=== PATIENT | female | born 1970 | race Caucasian/White ===

== ENCOUNTER 2024-11-05 08:50 | Inpatient (IN) ==
--- NOTE | 2024-10-22 08:38 | PAT Medication Instructions ---
Medication Instructions Date of Service October 22, 2024 Home Medications cholecalciferol (vitamin D3) 50 mcg (2,000 unit) capsule (Vitamin D3) 50 mcg PO DAILY cyclobenzaprine 10 mg tablet 10 mg PO HS PRN Spasms linaclotide 145 mcg capsule (Linzess) 145 mcg PO QAM metoprolol succinate 50 mg tablet,extended release 24 hr 50 mg PO QAM omeprazole 40 mg capsule,delayed release 40 mg PO QAM phentermine 37.5 mg tablet 37.5 mg PO UD polyethylene glycol 3350 17 gram oral powder packet (Miralax) 17 g PO DAILY DO NOT take the morning of surgery cholecalciferol (vitamin D3) 50 mcg (2,000 unit) capsule (Vitamin D3) 50 mcg PO DAILY linaclotide 145 mcg capsule (Linzess) 145 mcg PO QAM polyethylene glycol 3350 17 gram oral powder packet (Miralax) 17 g PO DAILY Take morning of surgery With a small sip of water, OTHERWISE NOTHING TO EAT OR DRINK AFTER MIDNIGHT: metoprolol succinate 50 mg tablet,extended release 24 hr 50 mg PO QAM omeprazole 40 mg capsule,delayed release 40 mg PO QAM Take evening before surgery cyclobenzaprine 10 mg tablet 10 mg PO HS PRN Spasms (if needed) STOP 5 days prior to surgery phentermine 37.5 mg tablet 37.5 mg PO UD Other Notes If you have any questions please call us at [phone] or [phone] or [phone] or [phone]
--- NOTE | 2024-10-28 11:25 | Anesthesiology Consultation ---
Date of Service October 28, 2024 Assessment & Plan (1) Encounter for pre-operative examination: - will request surgeon ordered medical clearance, Martin Nestor Internal medicine [facility]-patient states is seeing PCP again 11/02; PAT testing to be faxed to PCP. - potential difficult intubation: s/p multilevel cervical spine surgery. Chart Review Chart Review: Pending: Refer to Additional Notes / Consult section and Patient seen in Pre Admission Testing Teaching & Discussion Pre-Anesthesia Teaching/Discussion Notes: Instructed NPO after midnight before surgery, except medications with 15 cc of water. Medication instructions provided according to the PAT guidelines. History Surgery Operation Date: 11/05/24 11:25 Proposed Procedures p L4-S1 Decompression and Fusion - Byron Schmidt DO Height/Weight Height: 5 ft 4 in Weight: 85.7 kg Allergies Allergy/AdvReac Type Severity Reaction Status Date / Time No Known Allergies Allergy Verified 10/21/24 14:05 Medications Home Medications Medication Instructions Recorded Confirmed Last Taken cholecalciferol (vitamin D3) 50 50 mcg PO DAILY 10/21/24 10/21/24 Unknown mcg (2,000 unit) capsule (Vitamin D3) cyclobenzaprine 10 mg tablet 10 mg PO HS PRN Spasms 10/21/24 10/21/24 Unknown linaclotide 145 mcg capsule 145 mcg PO QAM 10/21/24 10/21/24 Unknown (Linzess) metoprolol succinate 50 mg 50 mg PO QAM 10/21/24 10/21/24 Unknown tablet,extended release 24 hr omeprazole 40 mg capsule,delayed 40 mg PO QAM 10/21/24 10/21/24 Unknown release phentermine 37.5 mg tablet 37.5 mg PO UD 10/21/24 10/21/24 Unknown polyethylene glycol 3350 17 gram 17 g PO DAILY 10/21/24 10/21/24 Unknown oral powder packet (Miralax) Past Medical History Medical History (Updated 10/28/24 @ 11:40 by Teresita Leija PA-C) Constipation DDD (degenerative disc disease), lumbar GERD (gastroesophageal reflux disease) controlled, stable per pt HTN (hypertension) controlled, stable per pt Hx MRSA infection pilondial cyst- treated at [facility], 2022-no precautions needed per [place] infection control Hx of hemorrhoids Potential difficult intubation on preoperative anesthesia assessment s/p multilevel cervical spine surgery Patient denies h/o stroke, seizures, heart attack, heart failure, DM, blood clots/DVTs or blood transfusions. Exercise / Class Metabolic Activity II 4-5 Yardwork/Stairs/Walk up hill (denies chest discomfort or shortness of breath with one flight of stairs) Past Surgical History Surgical History Hx of cervical spine surgery ~ 8-9 years ago- had cage placed, unsure of level - full rom Hx of section (1990) x2 1990 Hx of cholecystectomy > 10 years ago Hx of colonoscopy Hx of hysterectomy (01/22/23) Hx of pilonidal cyst ~ 1-2 years Past Anesthesia History No Hx of Anesthesia Complications and No Family Hx of Anesthesia Complications History of PONV No Hx of PONV and No Hx of Motion Sickness Social History Smoking Status: Never smoker Do You Dip or Chew Tobacco: No Hx Alcohol Use: No Hx Substance Use: No substance use type: does not use Review of Systems Patient denies chest pain, shortness of breath, dyspnea on exertion, snoring, witnessed apneas, fever, chills, cough, wheezing, or palpitations. Physical Exam Vital Signs Vitals BP 138/68 P 54 TEMP 98.1 SP02 96% on RA RESP 17 Physical Patient resting comfortably in chair in no acute distress, alert and oriented, responding appropriately throughout visit Limited cervical extension range of motion without pain TMD 3 finger breadths Mallampati Score 3 Dentition: bridge and permanent wire behind teeth, denies chipped or loose teeth, caps/crowns, implants Lungs: normal respiratory effort. Good air movement, clear throughout to auscultation, no adventitious breath sounds Cardiac: regular rate and rhythm, no murmurs noted Carotid arteries: negative bruit bilat Lab Results Anesthesia Preop Results Results Anesthesia Widget: WBC 6.04 K/ul (4.8-10.8) 10/28/24 Hgb 13.9 g/dl (12.0-16.0) 10/28/24 Hct 40.7 % (37.0-47.0) 10/28/24 Plt 209 K/uL (130-400) 10/28/24 Na 138 mmol/L (136-145) 10/28/24 K 4.7 mmol/L (3.5-5.1) 10/28/24 Cl 105 mmol/L (98-107) 10/28/24 CO2 28 mmol/L (21-32) 10/28/24 BUN 22 mg/dl (6-23) 10/28/24 Creat 0.89 mg/dl (0.6-1.2) 10/28/24 Glucose Level 91 mg/dl (70-99(Fasting)) 10/28/24 PT 10.3 Seconds (9.0-12.0) 10/28/24 PTT 22 Seconds (21-31) 10/28/24 INR 0.9 (0.9-1.1) 10/28/24 Urine Color Yellow 10/28/24 Urine Appearance Clear (Clear) 10/28/24 Urine pH 5.0 (4.5-7.5) 10/28/24 Urine Specific [place] 1.011 (1.000-1.030) 10/28/24 Urine Protein Negative (Negative) 10/28/24 Urine Glucose (UA) Negative (Negative) 10/28/24 Urine Ketones Negative (Negative) 10/28/24 Urine Blood Negative (Negative) 10/28/24 Urine Nitrite Negative (Negative) 10/28/24 Urine Bilirubin Negative (Negative) 10/28/24 Urine Urobilinogen Negative (Negative) 10/28/24 Urine Leukocyte Esterase Negative (Negative) 10/28/24 Blood Type A Positive 10/28/24 Antibody Screen NEGATIVE 10/28/24 Testing Electrocardiogram Date: 10/28/24 Sinus bradycardia with 1st degree AV block, rate 54 bpm Chest X-Ray Date: 10/28/24 Heart size and pulmonary vasculature are normal. No consolidation or pleural effusion. There is minimal scoliosis. IMPRESSION: No acute findings.
[~2024-11-05 08:50] MED LIST: DEXAMETHASONE SOD INJ 4 MG/ML VIAL ONE; LARYING-O-JET KIT (LTA) ONE; LIDOCAINE 2% 2 ML VIAL/AMP(20MG/ML) INFIL ONE; MIDAZOLAM HCL 1 MG/ML 2ML VIAL ONE; ONDANSETRON INJ 2 MG/ML 2 ML VIAL ONE; PROPOFOL IV EMULSION 10 MG/ML 20 ML VIAL IV ONE; ROCURONIUM BROMIDE 10 MG/ML 5 ML VIAL IV ONE
[2024-11-05] MEDS ORDERED: ePHEDrine sulfate 50 MG/5 ML SYR ONE ×2 (09:29→11:18)
[2024-11-05] MEDS: LR 15ML/HR IV SCH (09:32)
[2024-11-05] MEDS: LR 60ML/HR IV SCH (09:32)
[2024-11-05] MEDS: CeleBREX 200 MG CAP PO SCH (09:34)
[2024-11-05] MEDS: GABAPENTIN 900 MG DOSE PO SCH (09:34)
[2024-11-05] MEDS: ACETAMINOPHEN 500 MG TAB PO SCH (09:34)
[2024-11-05] MEDS ORDERED: ATROPINE SULFATE 0.1 MG/ML 10ML SYR IV PRN (09:41)
[2024-11-05] MEDS ORDERED: PROMETHAZINE HCL 6.25 MG in SODIUM CHLORIDE 0.9% 50 ML IV PRN (09:41)
--- NOTE | 2024-11-05 10:06 | History & Physical Bridge Note ---
Date of Service November 05, 2024 History & Physical Bridge Note I have examined the patient, reviewed the History & Physical and in the interval since the performance of the History & Physical I have noted the following changes of clinical significance: no changes noted
--- NOTE | 2024-11-05 10:07 | History & Physical Report ---
Date of Service November 05, 2024 Assessment & Plan (1) Lumbosacral spondylosis with radiculopathy: Plan: L4-S1 decompression and fusion History of Present Illness Chief Complaint: Back and leg pain Primary Care Provider: Martin Baez PA-C This is a 54-year-old female who presents chronic persistent back and leg pain after failing course of nonoperative care she is here for surgical intervention. Allergies Allergy/AdvReac Type Severity Reaction Status Date / Time No Known Allergies Allergy Verified 11/05/24 09:12 Home Medications Medication Instructions Recorded Confirmed Type cholecalciferol (vitamin D3) 50 50 mcg PO DAILY 10/21/24 11/05/24 History mcg (2,000 unit) capsule (Vitamin D3) cyclobenzaprine 10 mg tablet 10 mg PO HS PRN Spasms 10/21/24 11/05/24 History linaclotide 145 mcg capsule 145 mcg PO QAM 10/21/24 11/05/24 History (Linzess) metoprolol succinate 50 mg 50 mg PO QAM 10/21/24 11/05/24 History tablet,extended release 24 hr omeprazole 40 mg capsule,delayed 40 mg PO QAM 10/21/24 11/05/24 History release phentermine 37.5 mg tablet 37.5 mg PO UD 10/21/24 11/05/24 History polyethylene glycol 3350 17 gram 17 g PO DAILY 10/21/24 11/05/24 History oral powder packet (Miralax) Past Med/Surg History Problem List (Updated 11/05/24 @ 10:07 by Byron Schmidt DO) Lumbosacral spondylosis with radiculopathy Encounter for pre-operative examination Medical History (Updated 11/05/24 @ 10:07 by Byron Schmidt DO) Potential difficult intubation on preoperative anesthesia assessment s/p multilevel cervical spine surgery Hx MRSA infection pilondial cyst- treated at [facility], 2022-no precautions needed per [place] infection control DDD (degenerative disc disease), lumbar GERD (gastroesophageal reflux disease) controlled, stable per pt HTN (hypertension) controlled, stable per pt Hx of hemorrhoids Constipation Surgical History Hx of pilonidal cyst ~ 1-2 years Hx of colonoscopy Hx of cervical spine surgery ~ 8-9 years ago- had cage placed, unsure of level - full rom Hx of hysterectomy (01/22/23) Hx of cholecystectomy > 10 years ago Hx of section (1990) x2 1990 Social History Smoking Status: Never smoker Second Hand Exposure: No; Do You Dip or Chew Tobacco: No; Tobacco Cessation Education Requested by Patient: No Hx Alcohol Use: No Hx Substance Use: No Preferred Language: British Communication Ability: Effective Forestry Pilot Required: No Beliefs That Will Affect Care: None Current Living Situation: Spouse Other Information That Helps Us Care for You: No Feels Safe at Home: Yes Safety Concerns: Feels Safe At This Time Assistive Devices: Glasses Physical Exam Physical Exam: Patient is alert and oriented heart regular rhythm Lungs clear Results & Data Results & Data Vital Signs (Past 12 Hours) Vital Signs Temp Pulse Resp BP Pulse Ox O2 Del Method 11/05/24 09:16 36.8 C 64 20 133/90 98 Room Air
[2024-11-05] MEDS: BUPIVACAINE/EPINEPHRINE 0.25% 1:200,000 30 ML VIAL ONE (10:59)
[2024-11-05] MEDS ORDERED: SUGAMMADEX SODIUM 200 MG/2 ML VIAL IV ONE (11:34)
[2024-11-05] MEDS: ceFAZolin 330 MG/ML 1 GM VIAL ONE (11:40)
[2024-11-05] MEDS: FLOSEAL HEMOSTATIC MATRIX 10ML TOP ONE (12:34)
--- NOTE | 2024-11-05 12:53 | Fluoroscopy Report ---
FL lumbar spine 2-3V CLINICAL HISTORY: L4-S1 DECOMP AND FUSION COMPARISON STUDY: None FLUOROSCOPY TIME: 21 seconds FLUOROSCOPY IMAGES: 2 EXPOSURE DOSE: 21 mGy FINDINGS: Fluoroscopy was provided for lower lumbar fusion. IMPRESSION: Intraoperative fluoroscopy. ACT 112: Negative or not required by law. Electronically signed by: Heber Cerna M.D. 11/05/2024 12:51 PM
--- NOTE | 2024-11-05 13:04 | Operative Report ---
Post Operative Report Pre & Post Diagnosis Operation Date: 11/05/24 10:05 Pre-Op Diagnosis: #1 Two-Level Lumbosacral Spondylosis with Radiculopathy #2 lumbar spondylolisthesis with radiculopathy Post-Op Diagnosis: Same I identified the patient and participated in the time-out.: Yes Procedure Operation Date: 11/05/24 10:05 Actual Procedures #1 lumbar decompression with bilateral medial facetectomies and foraminotomies L3-L4, L4-5 and L5-S1. #2 posterior spinal fusion L4-S1. #3 placed posterior instrumentation L4-S1 using Fuentes. #4 interbody fusion L4-5 L5-S1. #5 placement of Spira 11 x 26 mm x 2 at L4-L5 and 9 x 26 mm x 2 at L5-S1. #6 placement locally harvested morselized autograft posterior gutters. #7 placement of Proteus combined with Koros in the posterior lateral gutters and os design interbody space. #8 application of versa wrap of the exposed dura. Surgeon Byron Schmidt, [employer] Starla Keating Estimated Blood Loss 550 Findings Consistent with Post-Op Diagnosis Specimens None Indications This is a 54-year-old female who presents manage diagnosis of nonoperative care she is here for surgical invention. Description of Procedure Patient was met with identified informed consent obtained. Patient was then taken to the operative suite underwent the patient placed in a prone position on the Prince table atop Martir frame. All bony promises well-padded eyes inspected to ensure no external pressure placed upon them. This point lumbar spine is prepped and draped in normal sterile fashion. Sharp dissection with the assistance of Bovie cautery from down to and exposing the lamina transverse processes of L4-5 and the sacral ala bilaterally. From a caudal to cephalad fashion complete laminectomy of L5 was performed with bilateral medial facetectomy and foraminotomies. This was followed by complete laminectomy of L4 with bilateral medial facetectomies and foraminotomies and lastly partial laminectomy of L3 with bilateral medial facetectomies to address all subarticular neural compression. Pedicle screws were then placed in L4-L5 and S1 levels bilaterally with assistance of fluoroscopy appropriate size haylee contoured and placed. By way the transforaminal approach on the right discectomy of L5-S1 was performed endplates guarded to subcortical bleeding bone and 9 x 26 mm Spira cage tapped into position. Then proceeded to the left transforaminal region at L5-S1. Again discectomy performed. Endplates corrected to subcortical bleeding bone and a second 9 x 26 mm Spira cage tapped in position. Then proceeded L4-L5 and by way of transforaminal approach and left discectomy performed. Endplates corrected to subcortical bleeding bone and a 11 x 26 mm Spira cage tapped in position. Then proceeded to the right transforaminal region at L4-5. Again discectomy performed. Endplates guided to subcortical bleeding bone and a second 11 x 26 mm Spira cage tapped in position. Please note all cages were packed with os design bone graft. Rods were then locked in a final position bilaterally. The transverse processes of L4-L5 and the sacral ala burred to subcortical bleeding bone. Proteus combined with Koros and local autograft placed posterior gutters. Versa wrap placed of exposed dura. 15 round GORDO drain inserted. Incision was then closed with 1 Vicryl the fascia 2-0 Vicryl subcutaneously and 4-0 Monocryl for final skin closure. Steri-Strips sterile dressing placed. Patient waken taken to PACU stable condition. Please note Starla Keating was present at the entire procedure and all the patient positioning complex ports of the surgery and final skin closure. I attest to the content of the Intraoperative Record and any orders documented therein. Any exceptions are noted below.
[2024-11-05] MEDS: HYDROmorphone INJ 2 MG/ML SYR/VIAL IV PRN (13:22)
[2024-11-05] MEDS: HYDROmorphone INJ 0.5 MG/0.5 ML SYR IV STA (13:43)
[2024-11-05] MEDS: HYDROmorphone INJ 0.5 MG/0.5 ML SYR IV PRN ×2 (13:43→20:03)
--- NOTE | 2024-11-05 14:38 | Anesthesiology Progress Note ---
Date of Service November 05, 2024 Anesthesia Post Procedure Vital Signs Vital Signs: Temp Pulse Pulse Resp BP BP Pulse Ox 11/05/24 14:05 69 14 114/61 96 11/05/24 13:55 71 14 119/79 97 11/05/24 13:45 73 14 122/79 97 11/05/24 13:35 75 14 104/61 96 11/05/24 13:25 86 14 112/63 96 11/05/24 13:15 92 H 12 106/66 99 11/05/24 13:05 36.4 C L 87 16 109/79 96 11/05/24 09:16 36.8 C 64 20 133/90 98 O2 Del Method O2 Flow Rate 11/05/24 14:05 Nasal Cannula 4 11/05/24 13:55 Nasal Cannula 4 11/05/24 13:45 Oxymask 5 11/05/24 13:35 Oxymask 5 11/05/24 13:25 Oxymask 5 11/05/24 13:15 Oxymask 13 11/05/24 13:05 Oxymask 13 11/05/24 09:16 Room Air Pain Intensity Lower Back: Pain Intensity: 5 Transfer of Care Handoff Completed per policy Notes Mental Status: alert / awake / arousable and participated in evaluation Nausea / Vomiting: adequately controlled Pain: adequately controlled Airway Patency, RR, SpO2: stable & adequate BP & HR: stable & adequate Hydration State: stable & adequate Anesthetic Complications: no major complications apparent and Pt Satisfied with anesthetic care
[2024-11-05] MEDS ORDERED: SOD PHOSPHATE/SOD BIPHOSPHATE ENEMA 132 ML BTL PR PRN (15:09)
[2024-11-05] MEDS ORDERED: NALOXONE HCL 0.4 MG/1 ML VIAL/CARP IV PRN (15:09)
[2024-11-05] MEDS ORDERED: PROMETHAZINE 12.5 MG/50.5 ML BAG IV PRN (15:09)
[2024-11-05] MEDS ORDERED: LORazepam 0.5 MG TAB PO PRN (15:09)
[2024-11-05] MEDS ORDERED: ONDANSETRON INJ 2 MG/ML 2 ML VIAL IV PRN (15:09)
[2024-11-05] MEDS ORDERED: diphenhydrAMINE Capsule 25 MG CAP PO PRN (15:09)
[2024-11-05] MEDS ORDERED: MAGNESIUM HYDROXIDE SUSP 30 ML UDC PO PRN (15:09)
[2024-11-05] MEDS ORDERED: ALUMINUM/MAGNESIUM SUSP 30 ML UDC PO PRN (15:09)
[2024-11-05] MEDS ORDERED: ACETAMINOPHEN 1,000 MG/100 ML VIAL IV PRN (15:09)
[2024-11-05] MEDS ORDERED: FAMOTIDINE 20 MG TAB PO PRN (15:09)
[2024-11-05] MEDS ORDERED: DO NOT ADMINISTER PNEUMOCOCCAL VACCINE PRN (15:09)
[2024-11-05] MEDS ORDERED: DO NOT ADMINISTER FLU VACCINE PRN (15:09)
[2024-11-05] MEDS ORDERED: ONDANSETRON 4 MG OD TAB PO PRN (15:09)
[2024-11-05] MEDS ORDERED: METOCLOPRAMIDE HCL INJ 5 MG/ML 2 ML VIAL IV PRN (15:09)
[2024-11-05] MEDS ORDERED: CYCLOBENZAPRINE HCL 10 MG TAB PO PRN (15:09)
[2024-11-05] MEDS: HYDROmorphone INJ 2 MG/ML SYR/VIAL ONE (15:17)
[2024-11-05] MEDS: LACTATED RINGER'S 1,000 ML IV SCH (15:38)
--- NOTE | 2024-11-05 17:21 | Consultation ---
Date of Consultation November 05, 2024 Assessment & Plan (1) Lumbosacral spondylosis with radiculopathy: Assessment/plan L4-S1 decompression fusion on 11/05 Preop hemoglobin of 13.9 on 10/28 Estimated blood loss of 550 Pain control with Dilaudid, Tylenol, tramadol. Continue PT OT Continue IV fluids Monitor CBC and BMP in a.m. Bowel regimen History of hypertensioncontinue on metoprolol History of GERDcontinue on omeprazole History of hyperlipidemianot on meds; follow-up with primary care provider Chronic constipationon bowel regimen Full code DVT prophylaxis SCDs; Time spent evaluating patient, direct bedside care, chart review, placing orders, interpretation of diagnostic studies, discussion with consultants, patient, and family members, as well as other required patient management activities is 60 minutes Please note the above document was generated using voice recognition software. It may contain grammatical, syntax or spelling errors. Any formal questions or concerns about the content, text or information contained within the body of this dictation should be directly addressed to the provider for clarification History of Present Illness Requesting Physician: Byron Schmidt DO Reason for Consultation: Medical management Attending Physician: Byron Schmidt DO History of Present Illness History obtained from chart review and interview with the patient Past medical history of class I obesity, depression, psychogenic nonepileptic seizure, dyslipidemia, hypertension, GERD, mixed lipidemia, chronic constipation Patient presented to the hospital with lumbar sacral spondylolysis with radiculopathy. She has history of chronic persistent back pain and leg pain and failed nonoperative care. Patient was referred for surgery. Patient underwent L4-S1 decompression and fusion by Dr. Schmidt. She is comfortable; does not appear to be in any distress. Denies any shortness of breath, chest pain, abdominal pain. Labs from 10/28 reviewed; hemoglobin of 13.9. BUN/creatinine within normal limits. EKG from 10/28 showed sinus bradycardia with first-degree AV block Family history; hypertension in mother, heart disease in father, hypertension in brother Social history; does not smoke, does not use alcohol nonoperative Allergies Allergy/AdvReac Type Severity Reaction Status Date / Time No Known Allergies Allergy Verified 11/05/24 09:12 Home Medications Medication Instructions Recorded Confirmed Type cholecalciferol (vitamin D3) 50 50 mcg PO DAILY 10/21/24 11/05/24 History mcg (2,000 unit) capsule (Vitamin D3) cyclobenzaprine 10 mg tablet 10 mg PO HS PRN Spasms 10/21/24 11/05/24 History linaclotide 145 mcg capsule 145 mcg PO QAM 10/21/24 11/05/24 History (Linzess) metoprolol succinate 50 mg 50 mg PO QAM 10/21/24 11/05/24 History tablet,extended release 24 hr omeprazole 40 mg capsule,delayed 40 mg PO QAM 10/21/24 11/05/24 History release phentermine 37.5 mg tablet 37.5 mg PO UD 10/21/24 11/05/24 History polyethylene glycol 3350 17 gram 17 g PO DAILY 10/21/24 11/05/24 History oral powder packet (Miralax) Patient History Medical History (Updated 11/05/24 @ 10:07 by Byron Schmidt DO) Potential difficult intubation on preoperative anesthesia assessment s/p multilevel cervical spine surgery Hx MRSA infection pilondial cyst- treated at [facility], 2022-no precautions needed per [place] infection control DDD (degenerative disc disease), lumbar GERD (gastroesophageal reflux disease) controlled, stable per pt HTN (hypertension) controlled, stable per pt Hx of hemorrhoids Constipation Surgical History Hx of pilonidal cyst ~ 1-2 years Hx of colonoscopy Hx of cervical spine surgery ~ 8-9 years ago- had cage placed, unsure of level - full rom Hx of hysterectomy (01/22/23) Hx of cholecystectomy > 10 years ago Hx of section (1990) x2 1990 Social History Smoking Status: Never smoker Second Hand Exposure: No; Do You Dip or Chew Tobacco: No; Tobacco Cessation Education Requested by Patient: No Hx Alcohol Use: No Hx Substance Use: No Preferred Language: Slovak Communication Ability: Effective Manager Of Security Required: No Beliefs That Will Affect Care: None Current Living Situation: Spouse Other Information That Helps Us Care for You: No Feels Safe at Home: Yes Safety Concerns: Feels Safe At This Time Assistive Devices: Cane and Walker Review of Systems Review of Systems: All systems reviewed & are unremarkable except as noted in Subjective Physical Exam Physical Exam: On physical examination; Constitutional: WD/WN, vitals as above, NAD, sitting up in bed, pleasant, conversing easily Respiratory: normal respiratory effort, lungs clear to auscultation, no wheeze, rales, rhonchi. Normal insp/exp effort, no accessory muscle use Cardiovascular: RRR, no murmur, no edema Vessels: no JVD or carotid bruit Chest: normal inspection of chest Abdomen: normal bowel sounds, soft, nontender, no hepatosplenomegaly Musculoskeletal: dressing in place on the back with drain with serosangious output Skin: no rashes, warm and dry normal turgor Neurologic: PERRL, EOMI, accommodation nl, no face palsy, no dysarthria CN's II- XI intact bilaterally and moves all extremities Psychiatric: A+Ox3, euthymic affect Results & Data Vital Signs (Past 12 Hours) Vital Signs Temp Pulse Pulse Resp BP BP Pulse Ox 11/05/24 16:56 36.6 C 80 16 109/68 93 11/05/24 16:00 75 16 107/65 91 11/05/24 15:30 36.7 C 71 14 118/72 96 11/05/24 15:00 11/05/24 15:00 36.6 C 77 16 113/69 94 11/05/24 14:45 36.4 C L 11/05/24 14:35 73 14 111/60 95 11/05/24 14:25 71 14 111/61 95 11/05/24 14:15 36.2 C L 65 12 114/65 96 11/05/24 14:05 69 14 114/61 96 11/05/24 13:55 71 14 119/79 97 11/05/24 13:45 73 14 122/79 97 11/05/24 13:35 75 14 104/61 96 11/05/24 13:25 86 14 112/63 96 11/05/24 13:15 92 H 12 106/66 99 11/05/24 13:05 36.4 C L 87 16 109/79 96 11/05/24 09:16 36.8 C 64 20 133/90 98 O2 Del Method O2 Flow Rate 11/05/24 16:56 Nasal Cannula 3 11/05/24 16:00 Nasal Cannula 3 11/05/24 15:30 Nasal Cannula 3 11/05/24 15:00 Nasal Cannula 3 11/05/24 15:00 Nasal Cannula 2 11/05/24 14:45 11/05/24 14:35 Nasal Cannula 4 11/05/24 14:25 Nasal Cannula 4 11/05/24 14:15 Nasal Cannula 4 11/05/24 14:05 Nasal Cannula 4 11/05/24 13:55 Nasal Cannula 4 11/05/24 13:45 Oxymask 5 11/05/24 13:35 Oxymask 5 11/05/24 13:25 Oxymask 5 11/05/24 13:15 Oxymask 13 11/05/24 13:05 Oxymask 13 11/05/24 09:16 Room Air
[2024-11-05] MEDS: DOCUSATE SODIUM/SENNA 50/8.6MG TAB PO SCH (20:05)
[2024-11-06] MEDS: HYDROmorphone INJ 1 MG/ML SYRINGE IV PRN (01:31)
[2024-11-06] MEDS ORDERED: Nursing to Pharmacy Communication SCH (05:15)
[2024-11-06] MEDS: POLYETHYLENE (MIRALAX) 17 GM PACK PO SCH (05:46)
[2024-11-06 06:52] LABS: Hematocrit (blood only) 36.1 % (37.0-47.0); Hemoglobin 12.2 g/dl (12.0-16.0); Immature Granulocytes # (auto) 0.03 K/uL (0.01-0.20); Immature Granulocytes % (auto) 0.3 %; Mean Corpuscular Hemoglobin 28.4 pg (25.0-34.0); Mean Corpuscular Volume 84.0 fL (80.0-100.0); Platelet Count 242 K/uL (130-400); RDW Standard Deviation 39.0 fL (36.4-46.3); Red Blood Count 4.30 M/uL (4.20-5.40); White Blood Count 10.44 K/ul (4.8-10.8)
[2024-11-06 07:15] LABS: Anion Gap 7.0 (3-11); Blood Urea Nitrogen 13.0 mg/dl (6-23); Calcium 9.2 mg/dl (8.6-10.3); Carbon Dioxide 27.0 mmol/L (21-32); Chloride 98.0 mmol/L (98-107); Creatinine Clr Calc Pharmacy 81.7 ml/min; Glucose 125.0 mg/dl (70-99(Fasting)); Potassium 3.5 mmol/L (3.5-5.1); Sodium 132.0 mmol/L (136-145)
[2024-11-06] MEDS: dexAMETHasone 6 MG in SYRINGE 0 ML IV SCH (09:26)
[2024-11-06] MEDS: LINACLOTIDE 145 MCG CAPSULE PO SCH (09:26)
[2024-11-06] MEDS: METOPROLOL SUCC 50MG EXT REL TAB PO SCH (09:26)
[2024-11-06] MEDS: CHOLECALCIFEROL 25 MCG (1000 UNITS) TAB PO SCH (09:26)
--- NOTE | 2024-11-06 10:31 | Orthopedic Progress Note ---
Date of Service November 06, 2024 Assessment & Plan (1) Lumbosacral spondylosis with radiculopathy: Plan: At this time we will continue physical therapy monitor GORDO operatively discharge home next few days. Admission and Anticipated Discharge Date Admission Date: November 05, 2024 Subjective Back pain controlled leg pain improved. Tolerating physical therapy. Physical Exam Physical Exam: Patient is currently in bed. She is comfortable. Constricted testing. Results & Data Vital Signs (Past 12 Hours) Vital Signs Temp Pulse Resp BP BP Pulse Ox O2 Del Method 11/06/24 09:03 96 Room Air 11/06/24 07:20 Nasal Cannula 11/06/24 07:12 36.7 C 72 18 103/64 99 Nasal Cannula 11/06/24 03:41 36.8 C 79 16 100/60 97 Nasal Cannula 11/05/24 23:18 36.9 C 71 18 100/61 96 Nasal Cannula O2 Flow Rate 11/06/24 09:03 11/06/24 07:20 2 11/06/24 07:12 2.0 11/06/24 03:41 2 11/05/24 23:18 2 Queries Orthopedic Spine Obesity: Yes
--- NOTE | 2024-11-06 12:31 | Hospitalist Progress Note ---
Date of Service November 06, 2024 Assessment & Plan (1) Lumbosacral spondylosis with radiculopathy: Plan: Assessment/plan L4-S1 decompression fusion on 11/05 Preop hemoglobin of 13.9 on 10/28 Estimated blood loss of 550 Pain control with Dilaudid, Tylenol, tramadol. Continue PT OT Bowel regimen She has been feeling much better without any significant pain in the back and no radiculopathy Her blood counts including CBC and renal function and electrolytes remained stable History of hypertensioncontinue on metoprolol Blood pressure is controlled on the lower side at 103/64 History of GERDcontinue on omeprazole Denies any abdominal symptoms History of hyperlipidemianot on meds; follow-up with primary care provider Chronic constipationon bowel regimen Full code DVT prophylaxis SCDs; Please note the above document was generated using voice recognition software. It may contain grammatical, syntax or spelling errors. Any formal questions or concerns about the content, text or information contained within the body of this dictation should be directly addressed to the provider for clarification Admission and Anticipated Discharge Date Admission Date: November 05, 2024 Subjective 11/06/2024 The patient was seen and examined in medical floor She is status post L4-S1 decompression and fusion on 11/05/2024 Remains stable following the procedure and denies any significant back pain and no radiculopathic pain Review of Systems Review of Systems: All systems reviewed and are unremarkable except as noted below Physical Exam Physical Exam: Lying in bed without any acute distress Constitutional: well developed, well nourished, + ill appearing and + obese Eyes: PERRL, conjunctivae normal, anicteric sclerae ENMT: external ear and nose normal, oropharynx normal Neck: trachea midline, no thyromegaly Respiratory: no respiratory distress Auscultation: lungs clear to auscultation bilaterally Cardiovascular: Rate/Rhythm: regular rate and regular rhythm; not tachycardic Heart Sounds: normal S1 and normal S2; no murmur Gastrointestinal (Abdomen): Inspection/Auscultation: normal bowel sounds; abdomen not distended Percussion/Palpation: abdomen soft; abdomen nontender Musculoskeletal: No acute arthritis involving any of the joint Neurologic: normal touch/pain/proprioception and moves all extremities; no focal motor deficits Lymphatic: no cervical or axillary lymphadenopathy Results & Data Results & Data Vital Signs (Past 12 Hours) Vital Signs Temp Pulse Resp BP BP Pulse Ox O2 Del Method 11/06/24 11:20 36.7 C 67 16 103/64 97 Room Air 11/06/24 09:03 96 Room Air 11/06/24 07:20 Nasal Cannula 11/06/24 07:12 36.7 C 72 18 103/64 99 Nasal Cannula 11/06/24 03:41 36.8 C 79 16 100/60 97 Nasal Cannula O2 Flow Rate 11/06/24 11:20 11/06/24 09:03 11/06/24 07:20 2 11/06/24 07:12 2.0 11/06/24 03:41 2 Laboratory Results Short CBC 11/06/24 Range/Units 05:53 WBC 10.44 (4.8-10.8) K/ul Hgb 12.2 (12.0-16.0) g/dl Hct 36.1 L (37.0-47.0) % Plt Count 242 (130-400) K/uL BMP 11/06/24 05:53 Sodium 132 L Potassium 3.5 Chloride 98 Carbon Dioxide 27 BUN 13 Creatinine 0.84 Glucose 125 H Calcium 9.2 Medications Administered Current Inpatient Medications Acetaminophen (Acetaminophen 500 Mg Tab) 1,000 mg PO Q8H PRN PRN Reason: MILD Pain (1,2,3) & Pre PT Stop: 12/05/24 15:08 Al Hydrox/Mg Hydrox/Simethicone (Aluminum/Magnesium Susp 30 Ml Udc) 30 ml PO Q6H PRN PRN Reason: Dyspepsia Stop: 12/05/24 15:08 Bisacodyl (Bisacodyl 10 Mg Supp) [address] DAILY PRN PRN Reason: Constipation Stop: 12/05/24 15:08 Cyclobenzaprine HCl (Cyclobenzaprine Hcl 10 Mg Tab) 10 mg PO HS PRN PRN Reason: Spasms Stop: 12/05/24 15:08 Diphenhydramine HCl (Diphenhydramine Capsule 25 Mg Cap) 25 mg PO Q6H PRN PRN Reason: Allergic Rhinitis/Insomnia Stop: 12/05/24 15:08 Famotidine (Famotidine 20 Mg Tab) 20 mg PO Q12H PRN PRN Reason: Dyspepsia Stop: 12/05/24 15:08 Hydromorphone HCl (Hydromorphone Inj 0.5 Mg/0.5 Ml Syr) 0.5 mg IV Q3H PRN PRN Reason: MODERATE Pain(4,5,6)/Pre PT Stop: 11/19/24 15:08 Last Admin: 11/06/24 07:21 Dose: 0.5 mg Hydromorphone HCl (Hydromorphone Inj 1 Mg/Ml Syringe) 1 mg IV Q3H PRN PRN Reason: SEVERE Pain (7,8,9,10) Stop: 11/19/24 15:08 Last Admin: 11/06/24 01:31 Dose: 1 mg Hydroxyzine HCl (Hydroxyzine Hcl 25 Mg Tab) 25 mg PO Q8H PRN PRN Reason: Anxiety Stop: 12/05/24 15:08 Acetaminophen (Ofirmev) 1,000 mg in 100 mls @ 400 mls/hr IV Q8H PRN PRN Reason: MILD Pain (1,2,3) & Pre PT Stop: 11/06/24 15:09 Cefazolin Sodium (Ancef 2000mg) 2,000 mg in 15 mls @ 3.75 mls/min IV Q8H [facility]; Protocol Stop: 11/08/24 10:33 Last Admin: 11/06/24 11:12 Dose: 3.75 mls/min Promethazine HCl (Phenergan) 12.5 mg in 50.5 mls @ 202 mls/hr IV Q6H PRN PRN Reason: Nausea And Vomiting Stop: 12/05/24 15:08 Dexamethasone 6 mg/ Syringe 1.5 mls @ 1 mls/min IV DAILY [facility] Stop: 11/08/24 09:02 Last Admin: 11/06/24 09:26 Dose: 1 mls/min Influenza Virus Vaccine Quadrival (Do Not Administer Flu Vaccine) 1 each N/A PRN PRN PRN Reason: Notification Stop: 12/05/24 15:08 Linaclotide (Linaclotide 145 Mcg Capsule) 145 mcg PO QAM [facility] Stop: 12/06/24 08:59 Last Admin: 11/06/24 09:26 Dose: 145 mcg Lorazepam (Lorazepam 0.5 Mg Tab) 0.5 mg PO Q8H PRN PRN Reason: Sedation/Anxiety Stop: 12/05/24 15:08 Lorazepam (Lorazepam 2 Mg/1 Ml Vial) 0.5 mg IV Q8H PRN PRN Reason: Sedation/Anxiety Stop: 12/05/24 15:08 Magnesium Hydroxide (Magnesium Hydroxide Susp 30 Ml Udc) 30 ml PO Q24H PRN PRN Reason: Constipation Stop: 12/05/24 15:08 Metoclopramide HCl (Metoclopramide Hcl Inj 5 Mg/Ml 2 Ml Vial) 10 mg IV Q6H PRN PRN Reason: Nausea &/or Vomiting Stop: 12/05/24 15:08 Metoprolol Succinate (Metoprolol Succ 50mg Ext Rel Tab) 50 mg PO QAM [facility] Stop: 12/06/24 08:59 Last Admin: 11/06/24 09:26 Dose: 50 mg Naloxone HCl (Naloxone Hcl 0.4 Mg/1 Ml Vial/Carp) 0.1 mg IV Q5M PRN PRN Reason: Oversedation/Resp depression Stop: 12/05/24 15:08 Ondansetron HCl (Ondansetron Inj 2 Mg/Ml 2 Ml Vial) 4 mg IV Q6H PRN PRN Reason: Nausea &/or Vomiting Stop: 12/05/24 15:08 Ondansetron HCl (Ondansetron 4 Mg Od Tab) 4 mg PO Q6H PRN PRN Reason: Nausea Stop: 12/05/24 15:08 Oxycodone HCl (Oxycodone Hcl Ir 5 Mg Tab (Immediate Release)) 5 - 10 mg PO Q4H PRN PRN Reason: MOD/SEV Pain & Pre PT Stop: 11/19/24 15:08 Last Admin: 11/06/24 09:34 Dose: 10 mg Pantoprazole Sodium (Pantoprazole 40 Mg Tab) [facility] Stop: 12/06/24 08:59 Last Admin: 11/06/24 09:26 Dose: 40 mg Pneumococcal Polyvalent Vaccine (Do Not Administer Pneumococcal Vaccine) 1 each N/A PRN PRN PRN Reason: Notification Stop: 12/05/24 15:08 Polyethylene Glycol (Polyethylene (Miralax) 17 Gm Pack) 17 gm PO Q6 [facility] Stop: 12/06/24 05:59 Last Admin: 11/06/24 11:18 Dose: 17 gm Senna/Docusate Sodium (Docusate Sodium/Senna 50/8.6mg Tab) 2 tab PO HS [facility] Stop: 12/05/24 20:59 Last Admin: 11/05/24 20:05 Dose: 2 tab Sodium Biphosphate/Sodium Phosphate (Sod Phosphate/Sod Biphosphate Enema 132 Ml Btl) [address] ONE PRN PRN Reason: Constipation Stop: 12/05/24 15:08 Tramadol HCl (Tramadol Hcl 50 Mg Tablet) 50 - 100 mg PO Q4H PRN PRN Reason: MOD/SEV Pain & Pre PT Stop: 12/05/24 15:08 Vitamin D (Cholecalciferol 25 Mcg (1000 Units) Tab) 50 mcg PO DAILY [facility] Stop: 12/06/24 08:59 Last Admin: 11/06/24 09:26 Dose: 50 mcg
[2024-11-06] MEDS: ACETAMINOPHEN 500 MG TAB PO PRN (12:40)
--- NOTE | 2024-11-07 06:34 | Orthopedic Progress Note ---
Date of Service November 07, 2024 Assessment & Plan (1) Lumbosacral spondylosis with radiculopathy: Plan: At this time we will continue physical therapy monitor GORDO operatively discharge home Likely tomorrow Admission and Anticipated Discharge Date Admission Date: November 05, 2024 Subjective The patient was seen and examined in medical floor She is status post L4-S1 decompression and fusion on 11/05/2024 Remains stable following the procedure and denies any significant back pain and no radiculopathic pain Review of Systems Review of Systems: All systems reviewed & are unremarkable except as noted in HPI & below Physical Exam Physical Exam: Sensation intact to light touch L2-S1 bilaterally. Active EHL/FHL/GSC/TA bilaterally. Bilateral feet warm and well-perfused. Results & Data Vital Signs (Past 12 Hours) Vital Signs Temp Pulse Resp BP Pulse Ox O2 Del Method 11/06/24 23:02 36.7 C 59 L 18 99/62 L 95 Room Air
[2024-11-07 08:13] VITALS: RESP 16
--- NOTE | 2024-11-07 14:18 | Hospitalist Progress Note ---
Date of Service November 07, 2024 Assessment & Plan (1) Lumbosacral spondylosis with radiculopathy: Plan: Assessment/plan L4-S1 decompression fusion on 11/05 Preop hemoglobin of 13.9 on 10/28 Estimated blood loss of 550 Pain control with Dilaudid, Tylenol, tramadol. Continue PT OT Bowel regimen She has been feeling much better without any significant pain in the back and no radiculopathy Her blood counts including CBC and renal function and electrolytes remained stable Remains medically stable with minimal pain at the surgery site and she has been getting physical therapy History of hypertensioncontinue on metoprolol Blood pressure is controlled on the lower side at 103/64 History of GERDcontinue on omeprazole Denies any abdominal symptoms History of hyperlipidemianot on meds; follow-up with primary care provider Chronic constipationon bowel regimen Full code DVT prophylaxis SCDs; Please note the above document was generated using voice recognition software. It may contain grammatical, syntax or spelling errors. Any formal questions or concerns about the content, text or information contained within the body of this dictation should be directly addressed to the provider for clarification Admission and Anticipated Discharge Date Admission Date: November 05, 2024 Subjective 11/06/2024 The patient was seen and examined in medical floor She is status post L4-S1 decompression and fusion on 11/05/2024 Remains stable following the procedure and denies any significant back pain and no radiculopathic pain 11/07/2024 The patient was seen and examined in medical floor She has been feeling much better and ambulating without much difficulties Likely discharge tomorrow by the primary team Review of Systems Review of Systems: All systems reviewed and are unremarkable except as noted below Physical Exam Physical Exam: Lying in bed without any acute distress Constitutional: well developed, well nourished, + ill appearing and + obese Eyes: PERRL, conjunctivae normal, anicteric sclerae ENMT: external ear and nose normal, oropharynx normal Neck: trachea midline, no thyromegaly Respiratory: no respiratory distress Auscultation: lungs clear to auscultation bilaterally Cardiovascular: Rate/Rhythm: regular rate and regular rhythm; not tachycardic Heart Sounds: normal S1 and normal S2; no murmur Gastrointestinal (Abdomen): Inspection/Auscultation: normal bowel sounds; abdomen not distended Percussion/Palpation: abdomen soft; abdomen nontender Neurologic: normal touch/pain/proprioception and moves all extremities; no focal motor deficits Lymphatic: no cervical or axillary lymphadenopathy Results & Data Results & Data Vital Signs (Past 12 Hours) Vital Signs Temp Pulse Resp BP Pulse Ox O2 Del Method 11/07/24 08:06 64 107/73 11/07/24 07:08 36.8 C 60 16 98/62 L 99 Room Air Medications Administered Current Inpatient Medications Acetaminophen (Acetaminophen 500 Mg Tab) 1,000 mg PO Q8H PRN PRN Reason: MILD Pain (1,2,3) & Pre PT Stop: 12/05/24 15:08 Last Admin: 11/07/24 02:09 Dose: 1,000 mg Al Hydrox/Mg Hydrox/Simethicone (Aluminum/Magnesium Susp 30 Ml Udc) 30 ml PO Q6H PRN PRN Reason: Dyspepsia Stop: 12/05/24 15:08 Bisacodyl (Bisacodyl 10 Mg Supp) 10 mg IN DAILY PRN PRN Reason: Constipation Stop: 12/05/24 15:08 Cyclobenzaprine HCl (Cyclobenzaprine Hcl 10 Mg Tab) 10 mg PO HS PRN PRN Reason: Spasms Stop: 12/05/24 15:08 Diphenhydramine HCl (Diphenhydramine Capsule 25 Mg Cap) 25 mg PO Q6H PRN PRN Reason: Allergic Rhinitis/Insomnia Stop: 12/05/24 15:08 Famotidine (Famotidine 20 Mg Tab) 20 mg PO Q12H PRN PRN Reason: Dyspepsia Stop: 12/05/24 15:08 Hydromorphone HCl (Hydromorphone Inj 0.5 Mg/0.5 Ml Syr) 0.5 mg IV Q3H PRN PRN Reason: MODERATE Pain(4,5,6)/Pre PT Stop: 11/19/24 15:08 Last Admin: 11/06/24 07:21 Dose: 0.5 mg Hydromorphone HCl (Hydromorphone Inj 1 Mg/Ml Syringe) 1 mg IV Q3H PRN PRN Reason: SEVERE Pain (7,8,9,10) Stop: 11/19/24 15:08 Last Admin: 11/06/24 01:31 Dose: 1 mg Hydroxyzine HCl (Hydroxyzine Hcl 25 Mg Tab) 25 mg PO Q8H PRN PRN Reason: Anxiety Stop: 12/05/24 15:08 Cefazolin Sodium (Ancef 2000mg) 2,000 mg in 15 mls @ 3.75 mls/min IV Q8H [facility]; Protocol Stop: 11/08/24 10:33 Last Admin: 11/07/24 11:39 Dose: 3.75 mls/min Promethazine HCl (Phenergan) 12.5 mg in 50.5 mls @ 202 mls/hr IV Q6H PRN PRN Reason: Nausea And Vomiting Stop: 12/05/24 15:08 Dexamethasone 6 mg/ Syringe 1.5 mls @ 1 mls/min IV DAILY [facility] Stop: 11/08/24 09:02 Last Admin: 11/07/24 08:01 Dose: 1 mls/min Influenza Virus Vaccine Quadrival (Do Not Administer Flu Vaccine) 1 each N/A PRN PRN PRN Reason: Notification Stop: 12/05/24 15:08 Linaclotide (Linaclotide 145 Mcg Capsule) [facility] Stop: 12/06/24 08:59 Last Admin: 11/07/24 08:02 Dose: 145 mcg Lorazepam (Lorazepam 0.5 Mg Tab) 0.5 mg PO Q8H PRN PRN Reason: Sedation/Anxiety Stop: 12/05/24 15:08 Lorazepam (Lorazepam 2 Mg/1 Ml Vial) 0.5 mg IV Q8H PRN PRN Reason: Sedation/Anxiety Stop: 12/05/24 15:08 Magnesium Hydroxide (Magnesium Hydroxide Susp 30 Ml Udc) 30 ml PO Q24H PRN PRN Reason: Constipation Stop: 12/05/24 15:08 Metoclopramide HCl (Metoclopramide Hcl Inj 5 Mg/Ml 2 Ml Vial) 10 mg IV Q6H PRN PRN Reason: Nausea &/or Vomiting Stop: 12/05/24 15:08 Metoprolol Succinate (Metoprolol Succ 50mg Ext Rel Tab) 50 mg PO QAM [facility] Stop: 12/06/24 08:59 Last Admin: 11/07/24 08:07 Dose: 50 mg Naloxone HCl (Naloxone Hcl 0.4 Mg/1 Ml Vial/Carp) 0.1 mg IV Q5M PRN PRN Reason: Oversedation/Resp depression Stop: 12/05/24 15:08 Ondansetron HCl (Ondansetron Inj 2 Mg/Ml 2 Ml Vial) 4 mg IV Q6H PRN PRN Reason: Nausea &/or Vomiting Stop: 12/05/24 15:08 Ondansetron HCl (Ondansetron 4 Mg Od Tab) 4 mg PO Q6H PRN PRN Reason: Nausea Stop: 12/05/24 15:08 Oxycodone HCl (Oxycodone Hcl Ir 5 Mg Tab (Immediate Release)) 5 - 10 mg PO Q4H PRN PRN Reason: MOD/SEV Pain & Pre PT Stop: 11/19/24 15:08 Last Admin: 11/07/24 14:10 Dose: 5 mg Pantoprazole Sodium (Pantoprazole 40 Mg Tab) 40 mg PO QAM [facility] Stop: 12/06/24 08:59 Last Admin: 11/07/24 08:03 Dose: 40 mg Pneumococcal Polyvalent Vaccine (Do Not Administer Pneumococcal Vaccine) 1 each N/A PRN PRN PRN Reason: Notification Stop: 12/05/24 15:08 Polyethylene Glycol (Polyethylene (Miralax) 17 Gm Pack) 17 gm PO Q6 [facility] Stop: 12/06/24 05:59 Last Admin: 11/07/24 11:38 Dose: 17 gm Senna/Docusate Sodium (Docusate Sodium/Senna 50/8.6mg Tab) 2 tab PO HS [facility] Stop: 12/05/24 20:59 Last Admin: 11/06/24 19:56 Dose: 2 tab Sodium Biphosphate/Sodium Phosphate (Sod Phosphate/Sod Biphosphate Enema 132 Ml Btl) 132 ml IN ONE PRN PRN Reason: Constipation Stop: 12/05/24 15:08 Tramadol HCl (Tramadol Hcl 50 Mg Tablet) 50 - 100 mg PO Q4H PRN PRN Reason: MOD/SEV Pain & Pre PT Stop: 12/05/24 15:08 Vitamin D (Cholecalciferol 25 Mcg (1000 Units) Tab) 50 mcg PO DAILY [facility] Stop: 12/06/24 08:59 Last Admin: 11/07/24 08:02 Dose: 50 mcg
[2024-11-08 07:58] VITALS: BP 94/61; PULSE 48; TEMP 97.9; O2SAT 96
--- NOTE | 2024-11-08 13:18 | Hospitalist Progress Note ---
Date of Service November 08, 2024 Assessment & Plan (1) Lumbosacral spondylosis with radiculopathy: Plan: Assessment/plan L4-S1 decompression fusion on 11/05 Preop hemoglobin of 13.9 on 10/28 Estimated blood loss of 550 Pain control with Dilaudid, Tylenol, tramadol. Continue PT OT Bowel regimen She has been feeling much better without any significant pain in the back and no radiculopathy Her blood counts including CBC and renal function and electrolytes remained stable Remains medically stable with minimal pain at the surgery site and she has been getting physical therapy Minimal pain at the back and has been getting physical therapy and doing very well Medically stable to be discharged History of hypertensioncontinue on metoprolol Blood pressure is controlled on the lower side at 103/64 History of GERDcontinue on omeprazole Denies any abdominal symptoms History of hyperlipidemianot on meds; follow-up with primary care provider Chronic constipationon bowel regimen Full code DVT prophylaxis SCDs; Please note the above document was generated using voice recognition software. It may contain grammatical, syntax or spelling errors. Any formal questions or concerns about the content, text or information contained within the body of this dictation should be directly addressed to the provider for clarification Admission and Anticipated Discharge Date Admission Date: November 05, 2024 Subjective 11/06/2024 The patient was seen and examined in medical floor She is status post L4-S1 decompression and fusion on 11/05/2024 Remains stable following the procedure and denies any significant back pain and no radiculopathic pain 11/07/2024 The patient was seen and examined in medical floor She has been feeling much better and ambulating without much difficulties Likely discharge tomorrow by the primary team 11/08/2024 The patient was seen and examined in medical floor She has been feeling much better with minimal pain in the lower without any radiation Denies any other significant symptoms Awaiting to be discharged Review of Systems Review of Systems: All systems reviewed and are unremarkable except as noted below Physical Exam Physical Exam: Lying in bed without any acute distress Constitutional: well developed, well nourished, + ill appearing and + obese Eyes: PERRL, conjunctivae normal, anicteric sclerae ENMT: external ear and nose normal, oropharynx normal Neck: trachea midline, no thyromegaly Respiratory: no respiratory distress Auscultation: lungs clear to auscultation bilaterally Cardiovascular: Rate/Rhythm: regular rate and regular rhythm; not tachycardic Heart Sounds: normal S1 and normal S2; no murmur Gastrointestinal (Abdomen): Inspection/Auscultation: normal bowel sounds; abdomen not distended Percussion/Palpation: abdomen soft; abdomen nontender Neurologic: normal touch/pain/proprioception and moves all extremities; no focal motor deficits Lymphatic: no cervical or axillary lymphadenopathy Results & Data Results & Data Vital Signs (Past 12 Hours) Vital Signs Temp Pulse Resp BP Pulse Ox O2 Del Method 11/08/24 07:18 36.6 C 48 L 16 94/61 L 96 Room Air Medications Administered Current Inpatient Medications Acetaminophen (Acetaminophen 500 Mg Tab) 1,000 mg PO Q8H PRN PRN Reason: MILD Pain (1,2,3) & Pre PT Stop: 12/05/24 15:08 Last Admin: 11/07/24 02:09 Dose: 1,000 mg Al Hydrox/Mg Hydrox/Simethicone (Aluminum/Magnesium Susp 30 Ml Udc) 30 ml PO Q6H PRN PRN Reason: Dyspepsia Stop: 12/05/24 15:08 Bisacodyl (Bisacodyl 10 Mg Supp) 10 mg [place] DAILY PRN PRN Reason: Constipation Stop: 12/05/24 15:08 Cyclobenzaprine HCl (Cyclobenzaprine Hcl 10 Mg Tab) 10 mg PO HS PRN PRN Reason: Spasms Stop: 12/05/24 15:08 Diphenhydramine HCl (Diphenhydramine Capsule 25 Mg Cap) 25 mg PO Q6H PRN PRN Reason: Allergic Rhinitis/Insomnia Stop: 12/05/24 15:08 Famotidine (Famotidine 20 Mg Tab) 20 mg PO Q12H PRN PRN Reason: Dyspepsia Stop: 12/05/24 15:08 Hydromorphone HCl (Hydromorphone Inj 0.5 Mg/0.5 Ml Syr) 0.5 mg IV Q3H PRN PRN Reason: MODERATE Pain(4,5,6)/Pre PT Stop: 11/19/24 15:08 Last Admin: 11/06/24 07:21 Dose: 0.5 mg Hydromorphone HCl (Hydromorphone Inj 1 Mg/Ml Syringe) 1 mg IV Q3H PRN PRN Reason: SEVERE Pain (7,8,9,10) Stop: 11/19/24 15:08 Last Admin: 11/06/24 01:31 Dose: 1 mg Hydroxyzine HCl (Hydroxyzine Hcl 25 Mg Tab) 25 mg PO Q8H PRN PRN Reason: Anxiety Stop: 12/05/24 15:08 Promethazine HCl (Phenergan) 12.5 mg in 50.5 mls @ 202 mls/hr IV Q6H PRN PRN Reason: Nausea And Vomiting Stop: 12/05/24 15:08 Influenza Virus Vaccine Quadrival (Do Not Administer Flu Vaccine) 1 each N/A PRN PRN PRN Reason: Notification Stop: 12/05/24 15:08 Linaclotide (Linaclotide 145 Mcg Capsule) 145 mcg PO [facility] Stop: 12/06/24 08:59 Last Admin: 11/08/24 08:05 Dose: 145 mcg Lorazepam (Lorazepam 0.5 Mg Tab) 0.5 mg PO Q8H PRN PRN Reason: Sedation/Anxiety Stop: 12/05/24 15:08 Lorazepam (Lorazepam 2 Mg/1 Ml Vial) 0.5 mg IV Q8H PRN PRN Reason: Sedation/Anxiety Stop: 12/05/24 15:08 Magnesium Hydroxide (Magnesium Hydroxide Susp 30 Ml Udc) 30 ml PO Q24H PRN PRN Reason: Constipation Stop: 12/05/24 15:08 Metoclopramide HCl (Metoclopramide Hcl Inj 5 Mg/Ml 2 Ml Vial) 10 mg IV Q6H PRN PRN Reason: Nausea &/or Vomiting Stop: 12/05/24 15:08 Metoprolol Succinate (Metoprolol Succ 50mg Ext Rel Tab) 50 mg PO [facility] Stop: 12/06/24 08:59 Last Admin: 11/08/24 08:06 Dose: Not Given Naloxone HCl (Naloxone Hcl 0.4 Mg/1 Ml Vial/Carp) 0.1 mg IV Q5M PRN PRN Reason: Oversedation/Resp depression Stop: 12/05/24 15:08 Ondansetron HCl (Ondansetron Inj 2 Mg/Ml 2 Ml Vial) 4 mg IV Q6H PRN PRN Reason: Nausea &/or Vomiting Stop: 12/05/24 15:08 Ondansetron HCl (Ondansetron 4 Mg Od Tab) 4 mg PO Q6H PRN PRN Reason: Nausea Stop: 12/05/24 15:08 Oxycodone HCl (Oxycodone Hcl Ir 5 Mg Tab (Immediate Release)) 5 - 10 mg PO Q4H PRN PRN Reason: MOD/SEV Pain & Pre PT Stop: 11/19/24 15:08 Last Admin: 11/08/24 09:51 Dose: 7 mg Pantoprazole Sodium (Pantoprazole 40 Mg Tab) 40 mg PO QAM [facility] Stop: 12/06/24 08:59 Last Admin: 11/08/24 08:05 Dose: 40 mg Pneumococcal Polyvalent Vaccine (Do Not Administer Pneumococcal Vaccine) 1 each N/A PRN PRN PRN Reason: Notification Stop: 12/05/24 15:08 Polyethylene Glycol (Polyethylene (Miralax) 17 Gm Pack) 17 gm PO Q6 [facility] Stop: 12/06/24 05:59 Last Admin: 11/08/24 05:23 Dose: 17 gm Senna/Docusate Sodium (Docusate Sodium/Senna 50/8.6mg Tab) 2 tab PO HS [facility] Stop: 12/05/24 20:59 Last Admin: 11/07/24 20:51 Dose: Not Given Sodium Biphosphate/Sodium Phosphate (Sod Phosphate/Sod Biphosphate Enema 132 Ml Btl) 132 ml TN ONE PRN PRN Reason: Constipation Stop: 12/05/24 15:08 Tramadol HCl (Tramadol Hcl 50 Mg Tablet) 50 - 100 mg PO Q4H PRN PRN Reason: MOD/SEV Pain & Pre PT Stop: 12/05/24 15:08 Vitamin D (Cholecalciferol 25 Mcg (1000 Units) Tab) 50 mcg PO DAILY [facility] Stop: 12/06/24 08:59 Last Admin: 11/08/24 08:06 Dose: 50 mcg
--- NOTE | 2024-11-08 14:23 | Discharge Summary ---
Date of Service November 08, 2024 Admission HPI Per Admitting Provider This is a 54-year-old female who presents chronic persistent back and leg pain after failing course of nonoperative care she is here for surgical intervention. Discharge Data Consultations 11/05/24 15:09 Consult Hospitalist Routine Procedures Performed Operation Date: 11/05/24 10:05 Actual Procedures p L4-S1 Decompression and Fusion(Not Applicable) - Byron Schmidt DO Hospital Course (1) Lumbosacral spondylosis with radiculopathy: Patient is a pleasant 54-year-old female with history physical examination radiographic images consist of the above-mentioned diagnosis. This reason she was brought to the operating room on 11/05/2024 undergone L a lumbar decompression from L4-S1 in conjunction with instrumented fusion. This performed by Dr. Schmidt under general anesthesia. She left the operating with a GORDO drain and Perez in place and was transferred to the PACU in stable condition. She was then transferred to the orthopedic floor. She was placed on GI DVT prophylax as well as pain control measures. She was seen by physical therapy postoperative her 1. Throughout her hospital course her Main Supple and Nontender Her Abdomen Remains Supple and Nontender. On Postoperative Day #3 She Was Deemed Safe for Home Discharge. Her Discharge Instructions Were to Change Her Dressing Once Daily till There Is No Drainage. She May Start to Shower Once Otherwise No Drainage. She Will Lift Nothing Heavier Than 7 Pounds She Should Not Perform Any Repetitive Bending or Twisting at the Waist. She Should Not Drive until She Is Seen in the Office in Approximately 2 Weeks. She Was to Call Be Seen Sooner She Develops Any Drainage from the Incision Increasing Pain Worsening Pain Going down Her Legs Fevers or Chills.
== END 2024-11-08 15:14 | disposition home or self-care (01) | DRG 428 ==
LOC: ASU 08:50 → 3W 13:07